=== PATIENT | male | born 1975 | race Caucasian/White ===

== ENCOUNTER 2016-05-27 13:13 | Emergency (ER) | payer SELFPAY ==
[~2016-05-27] VITALS: Ht 175.3 cm; Wt 124.7 kg
[2016-05-27] MEDS ORDERED: HYDROcodone/APAP 7.5 MG/325 MG (LORTAB, LORCET PLUS) TABLET PO STA (14:43)
[2016-05-27] MEDS ORDERED: LIDOCAINE 1% INJ 20 ML (XYLOCAINE) VIAL INJ STA (14:43)
[2016-05-27] MEDS ORDERED: TETANUS,DIPTH,PERTUSS P/F (BOOSTRIX) 0.5 ML VIAL IM STA (14:43)
--- NOTE | 2016-05-27 15:30 | Diagnostic Imaging Report ---
INDICATION: Laceration injury. COMPARISON: None. FINDINGS: Three radiographic views of the left third finger were obtained and show partial soft tissue amputation of the distal aspect of the digit. Underlying bony structures, however, appear to be intact. There is no evidence of acute osseous fracture or dislocation. No unexpected radiopaque foreign bodies are seen. IMPRESSION: 1. Partial soft tissue amputation of the distal third digit. No appreciable underlying bony abnormality or retained foreign body is seen. Dictated by: Dictated on workstation # [id number]
[2016-05-27] MEDS ORDERED: CEPH-507 PO (16:35)
[2016-05-27] MEDS ORDERED: TRAM-42 PO (16:35)
--- NOTE | 2016-05-27 16:35 | ED Upper Extremity ---
General Chief Complaint: Laceration Stated Complaint: L MIDDLE FINGER INJURY Nursing Triage Note: Lacerated Left 2nd finger with table saw Nursing Sepsis Screen: No Definite Risk History of Present Illness Time seen by provider: 14:15 Initial Comments Laceration to the left second finger, volar aspect distal phalanx with a table saw. Onset: just prior to arrival Pain/Injury Location: left 2nd finger Method of Injury: incised, other (table saw) Modifying Factors: Improves With Immobilization Allergies and Home Medications Allergies Coded Allergies: No Known Drug Allergies (Unverified , 05/27/16) Home Medications Cephalexin 500 Mg Capsule, 500 MG PO Q8H for 7 Days, #21 Prescribed by: CRISSY HDZ on 05/27/16 1635 Tramadol HCl 50 Mg Tablet, 50 MG PO Q8H PRN for PAIN, #12 Ref 0 Prescribed by: CRISSY HDZ on 05/27/16 1635 Constitutional: no symptoms reported, see HPI EENTM: no symptoms reported, see HPI Respiratory: no symptoms reported, see HPI Cardiovascular: no symptoms reported, see HPI Gastrointestinal: no symptoms reported, see HPI Genitourinary: no symptoms reported, see HPI Musculoskeletal: no symptoms reported, see HPI Skin: no symptoms reported, see HPI Psychiatric/Neurological: No Symptoms Reported, See HPI All Other Systems Reviewed Negative Unless Noted: Yes Past Rcrsrlk-Ejlcrd-Rbxgaj Hx Patient Social History Recent Foreign Travel: No Contact w/Someone Who Travel: No Recent Infectious Disease Expo: No Recent Hopitalizations: No Seasonal Allergies Seasonal Allergies: No Surgeries HX Surgeries: No Respiratory Hx Respiratory Disorders: No Cardiovascular Hx Cardiac Disorders: No Neurological Hx Neurological Disorders: No Reproductive System Hx Reproductive Disorders: No Sexually Transmitted Disease: No HIV/AIDS: No Genitourinary Hx Genitourinary Disorders: No Gastrointestinal Hx Gastrointestinal Disorders: No Musculoskeletal Hx Musculoskeletal Disorders: No Endocrine Hx Endocrine Disorders: No HEENT HX ENT Disorders: No Cancer Hx Cancer: No Psychosocial Hx Psychiatric Problems: No Integumentary HX Skin/Integumentary Disorder: No Blood Transfusions Hx Blood Disorders: No Adverse Reaction to a Blood Tr: No Reviewed Nursing Assessment Reviewed/Agree w Nursing PMH: Yes Physical Exam Vital Signs Vital Sign - Last 12Hours 05/27/16 13:45 Temp 97.5 Pulse 61 Resp 20 B/P (MAP) 127/93 Pulse Ox 93 O2 Flow Rate 0 Capillary Refill : NONE General Appearance: WD/WN, no apparent distress Cardiovascular: normal peripheral pulses, regular rate, rhythm, no murmur Respiratory: chest non-tender, lungs clear Hand: Left, laceration (1 cm X 1 cm laceration to distal phalanx, left index finger. Full flexion and extension at the MCP and PIP and DIP joint, resisted power V/V), swelling Neurologic/Tendon: normal sensation, normal motor functions, normal tendon functions, responds to pain Neurologic/Psychiatric: no motor/sensory deficits, alert, normal mood/affect, oriented x 3 Skin: normal color, warm/dry Lymphatic: no adenopathy Laceration Repair : Wound Location: Upper Extremities (Left index finger, distal volar surface) Wound Length (cm): 1 Wound's Depth, Shape: into muscle, irregular Wound Explored: no foreign body removed Irrigated w/ Saline (ccs): 500 Anesthesia: 1% Lidocaine Volume Anesthetic (ccs): 10 Wound Debrided: minimal Suture: Ethlion Suture Size: 4-0 Number of Sutures: 3 Sterile Dressing Applied?: Yes Progress Minimal to no skin flap present to provide closure. Explained to patient that we will have to allow for secondary closure of the wound as there is not enough tissue to get good approximation. He verbalized understanding of the importance to decrease or stop smoking, to improve circulation to the tip of the finger. This will require careful follow-up and assessment of the finger. Progress Patient tolerated the procedure well. Bulky sterile dressing with Adaptic and non-adherent applied. Progress/Results/Core Measures Results/Orders My Orders Orders - CRISSY HDZ Dipht,Pertuss(Acell),Tet Adult (Boostrix (05/27/16 14:43) Lidocaine 1% Injection (Xylocaine 1% Inj (05/27/16 14:43) Hydrocodone/Apap 7.5/325 Tab (Lortab 7. (05/27/16 14:43) Finger(S) (05/27/16 14:59) Vital Signs/I&O Vital Sign - Last 12Hours 05/27/16 05/27/16 13:45 16:45 Temp 97.5 Pulse 61 78 Resp 20 16 B/P (MAP) 127/93 Pulse Ox 93 98 O2 Flow Rate 0 Blood Pressure Mean: 104 Departure Impression Impression: Primary Impression: Laceration Disposition: 01 HOME, SELF-CARE Condition: Improved Departure-Patient Inst. Decision time for Depature: 16:00 Referrals: NO,LOCAL PHYSICIAN (PCP/Family) Primary Care Physician Patient Instructions: Laceration Repair With Stitches (DC) Add. Discharge Instructions: All discharge instructions reviewed with patient and/or family. Voiced understanding. Keep wound clean and dry for 3 days. Add additional bulky dressing as needed. On 05/30/16 remove dressing and wash hands thoroughly. Apply triple antibiotic ointment to wound, and bulky dressing. Keep clean and dry at work Take all of prescribed antibiotic Return to emergency room for concerning drainage, odor from wound, or any other problems. Return in 7-10 days for suture removal. Establish with primary care provider, per when check in 5 days. Scripts Cephalexin (Keflex) 500 Mg Capsule 500 MG PO Q8H for 7 Days, #21 CAP Prov: CRISSY HDZ 05/27/16 Tramadol HCl (Ultram) 50 Mg Tablet 50 MG PO Q8H Y for PAIN, #12 TAB 0 Refills Prov: CRISSY HDZ 05/27/16 Work/School Note: Local Medical Staff Listing, Work Release Form Date Seen in the Emergency Department: May 27, 2016 Return to Work: May 28, 2016 Other Restrictions Listed Below: Keep left hankd, 3rd finger clean and dry at all times. Wear glove for work CRISSY HDZ May 27, 2016 16:35
[2016-05-27 16:45] VITALS: BP 127/87
== END 2016-05-27 16:44 | disposition home or self-care (01) ==
LOC: ER 13:20
DX: S61.213A Laceration without foreign body of left middle finger without damage to nail, initial encounter (principal); Z23 Encounter for immunization; W27.0XXA Contact with workbench tool, initial encounter; Y99.8 Other external cause status
CPT/HCPCS: 73140; 90471; 90715